=== PATIENT | female | born 1995 | race Caucasian/White ===

== ENCOUNTER 2020-11-10 08:26 | Inpatient (IN) | payer MEDICAID ==
[2020-11-10] VITALS (12 sets, daily range): BP systolic 117–148; BP diastolic 61–95
[~2020-11-10] VITALS: Ht 157.5 cm; Wt 96.8 kg
[2020-11-10] MEDS ORDERED: CETI10CA2 PO (08:41)
[2020-11-10] MEDS ORDERED: FLUT15.820 NARES (08:43)
[2020-11-10] MEDS ORDERED: PRENTAB53 PO (08:43)
[2020-11-10] MEDS ORDERED: INSU100V2 SQ ×2 (08:49)
[2020-11-10] MEDS ORDERED: LACTATED RINGER'S 1000 ML IV STA (10:08)
[2020-11-10] MEDS ORDERED: CARBOPROST TROMETHAMINE 250 MCG/ML AMP IM PRN (10:10)
[2020-11-10] MEDS ORDERED: miSOPROStol 50MCG 1/2 TABLET SL SCH (10:10)
[2020-11-10] MEDS ORDERED: OXYTOCIN INJ 10 UNITS/ML VIAL (J2590) IV PRN (10:10)
[2020-11-10] MEDS ORDERED: OXYTOCIN INJ 10 UNITS/ML VIAL (J2590) IM PRN (10:10)
[2020-11-10] MEDS ORDERED: TRANEXAMIC ACID INJection 1,000 MG in NS 100 ML IV PRN (10:10)
[2020-11-10] MEDS ORDERED: OXYTOCIN DRIP 30 UNITS in IV 1 EA IV PRN ×6 (10:10)
[2020-11-10] MEDS ORDERED: LR 1,000 ML IV SCH (10:10)
[2020-11-10] MEDS ORDERED: LIDOCAINE 1% MDV 20ML VIAL INFIL PRN (10:10)
--- NOTE | 2020-11-10 10:14 | HPEPDOC ---
Obstetrical History & Physical General Date of Admission Nov 10, 2020 at 08:26 History of Present Illness 25-year-old at 39+0 weeks gestation. Presents for an induction of labor. Indication for induction: Insulin-dep GDM She denies vaginal bleeding, loss of fluid or painful, frequent uterine contrac tions. She reports regular movement. She denies headache, visual changes, right upper quadrant pain, shortness of breath or chest pain. course: GDM/insulin dependent PMH: Anxiety, depression SH: none Meds: vitamin, Lispro 10U qam, 7U at noon, 7U at night All: NKDA DIRECTOR OF SALES MARKETING: No STI or dysplasia OB: G1 Sochx: No tobacco, alcohol or drug use FamHx: Psych, DM2 labs: Blood type O+, antibody screen negative, HepBsAg neg, HIV neg, rubella immune, Hep C antibody negative, RPR nonreactive, CT/GC neg, urine culture negative, GDM screen positive. GBS negative Past Medical History Allergies Coded Allergies: cat dander (Verified Allergy, Unknown, 11/10/20) Medications Scheduled Cetirizine HCl (ZyrTEC) 10 Mg Capsule, 10 MG PO DAILY Fluticasone Propionate (Fluticasone Propionate) 15.8 Ml [place].susp, 2 SPRAY NARES DAILY Insulin Lispro (Insulin Lispro) 100 Unit/1 Ml Vial, 10 UNIT SQ QAM Insulin Lispro (Insulin Lispro) 100 Unit/1 Ml Vial, 7 UNIT SQ DAILY Insulin Lispro (Insulin Lispro) 100 Unit/1 Ml Vial, 7 UNIT SQ DAILY Vit,Calc76/Iron/Folic (Prenatabs Rx Tablet) 1 Each Tablet, 1 TAB PO DAILY Physical Examination Physical Examination GENERAL: Alert and oriented times three. ABDOMEN: Gravid and non-tender to touch. FETUS: Is vertex (VTX) by sterile vaginal examination (SVE), fetus is vertex (VTX) by Tomás. HEART RATE: Regular rate and rhythm. LUNGS: Clear to auscultation (CTA). EXTREMITIES: No edema. No clonus. Deep tendon reflexes (DTRs) + 2 SVE: Fingertip dilation, 25% effacement, thick, posterior, -3 station EFM: Category 1 [place]: No contraction pattern detected Vital Signs/I&O Vital Signs Date Time Temp Pulse Resp B/P (MAP) Pulse Ox O2 Delivery O2 Flow Rate FiO2 11/10/20 08:53 97.3 102 18 143/72 (95) Assessment/Plan Assessment 25-year-old G1, P0 at 39+ weeks gestation. Insulin-dependent gestational diabetes. Reassuring maternal and status. Plan Admit and orient. Dough Mixer Operator and consent. Labs and intravenous (IV) per unit protocol. Preeclamptic lab profile added Insulin drip protocol will be administered during active labor Counseled on cervical ripening and Pitocin for induction of labor (IOL). Mode of delivery plan: . C-S as appropriate. ALPA NGUYEN DO Nov 10, 2020 10:14
[2020-11-10 10:54] LABS: HEMATOCRIT 35.1 % (36.0-47.0); HEMOGLOBIN 11.6 g/dl (12.0-15.5); MEAN CORPUSCULAR HEMOGLOBIN 28.3 pg (27.0-33.0); MEAN CORPUSCULAR VOLUME 85.6 fl (80.0-96.0); PLATELET COUNT, AUTOMATED 286 10^3/uL (150-450); WHITE BLOOD COUNT 11.2 10^3/uL (4.0-10.0)
[2020-11-10] MEDS: miSOPROStol 50MCG 1/2 TABLET SL SCH ×3 (11:00→21:31)
[2020-11-10 11:14] LABS: CREATININE,RANDOM URINE 93.6 MG/DL; TOTAL PROTEIN,RANDOM URINE 13.5 MG/DL (0.0-12.0)
[2020-11-10 11:15] LABS: AMPHETAMINES URINE REFLEX NEGATIVE (NEGATIVE); BARBITURATES URINE REFLEX NEGATIVE (NEGATIVE); BENZODIAZEPINES URINE REFLEX NEGATIVE (NEGATIVE); CANNABINOIDS URINE REFLEX NEGATIVE (NEGATIVE); COCAINE METABOLITE URINE REFLE NEGATIVE (NEGATIVE); METHADONE URINE REFLEX NEGATIVE (NEGATIVE); OPIATES URINE REFLEX NEGATIVE (NEGATIVE); PHENCYCLIDINE URINE REFLEX NEGATIVE (NEGATIVE)
[2020-11-10 11:16] LABS: ALT/SGPT 15 U/L (12-78); BILIRUBIN,TOTAL 0.3 MG/DL (0.2-1.0); CREATININE FOR GFR 0.55 MG/DL (0.55-1.30); GLOMERULAR FILTRATION RATE > 60.0 (>60); LDH LACTATE DEHYDROGENASE 164 U/L (84-246); URIC ACID 5.3 MG/DL (2.6-6.0)
[2020-11-11] VITALS (41 sets, daily range): BP systolic 104–203; BP diastolic 57–97
[2020-11-11] MEDS ORDERED: ACETAMINOPHEN 500 MG TAB PO ONE (01:00)
[2020-11-11] MEDS ORDERED: INSULIN IV RATE CHANGE DOCUMENTATION ML/HR XX SCH (09:15)
[2020-11-11] MEDS ORDERED: INSULIN REGULAR IN 0.9 % NACL 100 UNIT in IV 1 EA IV SCH ×2 (09:15)
[2020-11-11] MEDS ORDERED: NS 1,000 ML IV SCH (09:15)
[2020-11-11] MEDS ORDERED: OXYTOCIN DRIP 30 UNITS in IV 1 EA IV SCH (09:15)
--- NOTE | 2020-11-11 09:15 | IPNPDOC ---
Text Note Date of Service The patient was seen on 11/11/20. NOTE Progress Remains comfortable UC mild, irregular FH 125, Cat I SVE 1-2/60/-2 Cooks catheter placed, inflated with 60/40cc NS Start pitocin and insulin GTT at this time. Plans epidural VS,Fishbone, I+O VS, Fishbone, I+O Laboratory Tests 11/10/20 10:27 11/10/20 10:28 Vital Signs Date Time Temp Pulse Resp B/P (MAP) Pulse Ox O2 Delivery O2 Flow Rate FiO2 11/11/20 08:21 94 18 144/79 (100) 11/11/20 07:13 97.9 Claudia Vee CNM Nov 11, 2020 09:15
[2020-11-11] MEDS ORDERED: PROMETHAZINE INJ 25 MG/ML VIAL (J2550) IV ONE (10:20)
[2020-11-11] MEDS ORDERED: BUTORPHANOL 2 MG/ML INJ (J0595) IV ONE (10:20)
--- NOTE | 2020-11-11 17:54 | IPNPDOC ---
Text Note Date of Service The patient was seen on 11/11/20. NOTE Progress Requesting add'l pain management. Cat I tracing, UC 3-5 minutes. Pitocin @ 18mu Vaginal bulb deflated. Uterine through the cervix and removed SVE 80/-3, moderate bloody show. Requesting epidural VS,Fishbone, I+O VS, Fishbone, I+O Vital Signs Date Time Temp Pulse Resp B/P (MAP) Pulse Ox O2 Delivery O2 Flow Rate FiO2 11/11/20 17:13 85 18 141/77 (98) 11/11/20 17:00 98.4 Claudia Vee Nov 11, 2020 17:54
[2020-11-11 22:54] LABS: HEMATOCRIT 33.7 % (36.0-47.0); HEMOGLOBIN 10.8 g/dl (12.0-15.5); MEAN CORPUSCULAR HEMOGLOBIN 27.8 pg (27.0-33.0); MEAN CORPUSCULAR VOLUME 86.6 fl (80.0-96.0); PLATELET COUNT, AUTOMATED 252 10^3/uL (150-450); RED BLOOD COUNT 3.89 10^6/uL (4.00-5.40); WHITE BLOOD COUNT 12.7 10^3/uL (4.0-10.0)
[2020-11-11] MEDS ORDERED: FENTANYL 2MCG/ML ROPIVACAINE 0.2% IN 0.9% NACL 100ML IVBAG As Ordered ONE (23:04)
[2020-11-12] VITALS (49 sets, daily range): BP systolic 93–178; BP diastolic 50–101
[2020-11-12] MEDS: FENTANYL/ROPIVACAINE/NACL BAG 100 ML EPIDURAL SCH ×2 (00:40→10:40)
[2020-11-12] MEDS ORDERED: ePHEDrine SULFATE 25 MG/5 ML(5MG/ML) SYRINGE As Ordered ONE (02:15)
[2020-11-12] MEDS ORDERED: REFRIGERATOR IV KEYS XX PRN (02:20)
[2020-11-12] MEDS ORDERED: diphenhydrAMINE 50MG/ML VIAL (J1200) IV PRN ×2 (02:20→17:10)
[2020-11-12] MEDS ORDERED: EPIDURAL COMMENT XX SCH (02:20)
[2020-11-12] MEDS ORDERED: LACTATED RINGER'S 1000 ML IV PRN (02:20)
[2020-11-12] MEDS ORDERED: NALOXONE INJ 0.4MG/1ML VIAL (J2310 PER 1MG) IV PRN ×3 (02:20→17:10)
[2020-11-12] MEDS ORDERED: ePHEDrine SULFATE 25 MG/5 ML(5MG/ML) SYRINGE IV PRN (02:20)
[2020-11-12] MEDS ORDERED: EPIDURAL/PCA KEYS XX PRN (02:20)
[2020-11-12] MEDS ORDERED: ONDANSETRON 4MG/2ML VIAL IV PRN ×3 (02:20→18:00)
--- NOTE | 2020-11-12 05:22 | IPNPDOC ---
Text Note Date of Service The patient was seen on 11/12/20. NOTE Progress Comfortable with epidural Blood sugars have been stable all night, no insulin required UC irregular, 3-5 minutes Primarily Cat I tracing, episodes of Cat II (variables) Pitocin currently at 4mu SVE /-1, AROM large amount clear fluid. Continue low dose pitocin and observe for progress. VS,Fishbone, I+O VS, Fishbone, I+O Laboratory Tests 11/11/20 22:48 Vital Signs Date Time Temp Pulse Resp B/P (MAP) Pulse Ox O2 Delivery O2 Flow Rate FiO2 11/11/20 19:30 98.1 76 104/58 (73) 11/11/20 18:43 18 I&O- Last 24 Hours up to 6 AM 11/12/20 06:00 Intake Total 1486 ml Output Total 1900 ml Balance -414 ml Claudia Vee CNM Nov 12, 2020 05:22
[2020-11-12] MEDS ORDERED: LACTATED RINGER'S 1000 ML IV STA (14:07)
--- NOTE | 2020-11-12 14:07 | IPNPDOC ---
Obstetrical Progress Note Date of Service Nov 12, 2020 Subjective - Comfortable following epidural. Objective Vital Signs Date Time Temp Pulse Resp B/P (MAP) Pulse Ox O2 Delivery O2 Flow Rate FiO2 11/12/20 11:58 96 140/96 (111) 11/12/20 05:27 98.0 11/11/20 18:43 18 Assessment Variability: Moderate Heart Rate Tracing: Category I Tocometer Contractions: Yes Frequency: regular Sterile Vaginal Examination Dilation: 5 cm Effacement (%): 70% Station: -2 Cervical Position: Middle Postion/Presentation: Cephalic presentation Assessment and Plan Age: 25 Status: Reassuring Anticipate: Section (Exam unchanged since 5am. I have discussed diagnosis of arrest of dilation. Recommend 1LTCS.All questions answered.) SONAL ABDALLA MD. Nov 12, 2020 14:07
[2020-11-12] MEDS ORDERED: AZITHROMYCIN INJ 500 MG, VIAL MATE ADAPTER 1 EACH in NS 250 ML IV ONE (14:10)
[2020-11-12] MEDS ORDERED: BICITRA 30ML SOLN UDC PO ONE (14:10)
[2020-11-12] MEDS ORDERED: ceFAZolin SOD 2 GM in IV 1 EA IV ONE (14:10)
[2020-11-12] MEDS ORDERED: LIDOCAINE 2% W/EPINEPHRINE 20ML VIAL **PRES FREE As Ordered ONE (16:11)
[2020-11-12] MEDS ORDERED: KETOROLAC 60MG 2ML VIAL As Ordered ONE (16:38)
[2020-11-12] MEDS ORDERED: ONDANSETRON 4MG/2ML VIAL As Ordered ONE (16:38)
[2020-11-12] MEDS ORDERED: MORPHINE PRES-FREE INJ 10 MG/10 ML VIAL (J2274) As Ordered ONE (16:39)
[2020-11-12] MEDS ORDERED: OXYTOCIN 30 UNITS IN 0.9% NaCl 500ML IV BAG (J2590) As Ordered ONE ×2 (16:42→18:05)
[2020-11-12] MEDS ORDERED: METOCLOPRAMIDE INJ 10MG/2ML VIAL (J2765 PER 1) IV PRN ×2 (17:10→18:00)
[2020-11-12] MEDS ORDERED: NALBUPHINE HCL 10 MG/ML AMP (J2300) IV PRN (17:10)
[2020-11-12] MEDS ORDERED: fentaNYL 100 MCG/2 ML INJECTION (J3010) IV PRN (18:00)
[2020-11-12] MEDS ORDERED: LR 1,000 ML IV SCH ×2 (18:00→18:05)
[2020-11-12] MEDS ORDERED: PERCOCET 5MG/325MG TAB PO PRN ×3 (18:00→18:05)
--- NOTE | 2020-11-12 18:03 | ROOPDOC ---
[facility] Report Of Operation Report of Operation DATE OF PROCEDURE: 11/12/20 SURGEON: Cira Hemphill M.D. TANGLED YARN SPOOL STRAIGHTENER: Jagdeep López M.D. ( essential for tissue retractions, exposure and delivery of ) PROCEDURE: Primary section PREOPERATIVE DIAGNOSIS: 1.Arrest of dilation POSTOPERATIVE DIAGNOSIS: 1.Arrest of dilation ANESTHESIA: Epidural ESTIMATED BLOOD LOSS: 600 mL URINE OUTPUT: 200 mL INTRAVENOUS FLUIDS: 700 mL of lactated Ringer's solution PREOPERATIVE ANTIBIOTICS:. 2 g of Ancef and 500 azithromycin OPERATIVE FINDINGS: Liveborn male infant, Apgars 9 and 9. Weight 3130 g 6 lbs. 14 oz. SPECIMENS: None DESCRIPTION OF PROCEDURE: After informed consent was obtained and written consent was reviewed. The patient was brought to the operating room. She was then placed in the supine position with a left lateral tilt. Watson catheter was placed and to gravity. Patient was then prepped and draped in the normal sterile fashion. A timeout operating room was performed identifying the patient, procedure be performed as well as drug allergies. Anesthesia was tested and deemed to be adequate. Pfannenstiel skin incision was made and this was carried down to the underlying rectus fascia. The fascia was then scored and this incision was extended bilaterally. The fascia was then dissected off the underlying rectus muscle superiorly and inferiorly. The rectus muscles were then in the midline. The peritoneum is then entered. Vesicouterine peritoneum was then tented and excised and a bladder flap was created. Mobius retractor was then placed. Next, a curvilinear incision was then made in the lower uterine segment. The head was brought to the level of the incision atraumatically and delivered along the shoulders and corpus. The cord was clamped x2. The infant was brought over to the warmer with a good cry. Placenta was drained and delivered grossly intact. The uterus was cleared of all clots and debris and the uterine incision was then closed using 0 Vicryl in a running locking fashion followed by a second layer of 0 Vicryl in a running nonlocking fashion for imbrication. The abdomen suctioned. Surgical sites reinspected and noted be hemostatic. The retractor was then removed. The anterior peritoneum was then reapproximated with 3-0 Vicryl. The rectus muscles were reapproximated 3-0 Vicryl. The fascia was then closed using 0 Vicryl in a running nonlocking fashion. The subcutaneous tissues was then irrigated and suctioned. Subcutaneous tissue was reapproximated using 3-0 Vicryl. Several subdermal stitch is placed using 3-0 Vicryl and the skin was closed with 4-0 Monocryl and subcuticular fashion. This incision was then cleaned and dried and was dressed. The patient was then taken to recovery in stable condition. All counts were correct. . My surgical rn Dr. López played in an essential role during the operation. He assisted with tissue identification retraction, delivery of the , as well as wound closure. CIRA HEMPHILL MD. Nov 12, 2020 18:03
[2020-11-12] MEDS ORDERED: MOM 30ML SUSPENSION UDC PO PRN (18:05)
[2020-11-12] MEDS ORDERED: MEASLES,MUMPS,RUBELLA VACCINE INJ (MMR-II) (90707) SC SCH (18:05)
[2020-11-12] MEDS ORDERED: ONDANSETRON 4 MG ORAL DISINTEGRATING TAB PO PRN (18:05)
[2020-11-12] MEDS ORDERED: SIMETHICONE 80MG CHEW TAB PO PRN (18:05)
[2020-11-12] MEDS ORDERED: OXYTOCIN DRIP 30 UNITS in IV 1 EA IV SCH (18:05)
[2020-11-12] MEDS ORDERED: RHOGAM 300 MCG (1500 IU) INJ (J2790) IM SCH (18:05)
[2020-11-12] MEDS: DOCUSATE SODIUM 100MG CAPSULE PO SCH (21:27)
[2020-11-12] MEDS: KETOROLAC 30 MG/ML 1ML VIAL IV SCH (22:44)
[2020-11-13 02:00] VITALS: BP 114/57
[2020-11-13] MEDS: KETOROLAC 30 MG/ML 1ML VIAL IV SCH ×3 (04:46→11:00)
[2020-11-13 06:00] VITALS: BP 108/61
[2020-11-13 07:59] LABS: HEMATOCRIT 30.2 % (36.0-47.0); HEMOGLOBIN 9.6 g/dl (12.0-15.5); MEAN CORPUSCULAR HEMOGLOBIN 28.1 pg (27.0-33.0); MEAN CORPUSCULAR HGB CONC 31.8 g/dl (32.0-36.5); MEAN CORPUSCULAR VOLUME 88.3 fl (80.0-96.0); PLATELET COUNT, AUTOMATED 248 10^3/uL (150-450); RED BLOOD COUNT 3.42 10^6/uL (4.00-5.40); WHITE BLOOD COUNT 15.2 10^3/uL (4.0-10.0)
[2020-11-13] MEDS: PRENATAL VITAMINS CHEWABLE TABLET PO SCH (09:08)
[2020-11-13] MEDS: DOCUSATE SODIUM 100MG CAPSULE PO SCH ×2 (09:08→20:14)
[2020-11-13 10:00] VITALS: BP 134/79
[2020-11-13] MEDS: CETIRIZINE (ZyrTEC) 10 MG TAB PO SCH (11:17)
[2020-11-13] MEDS: FLUTICASONE PROP 0.05% NASAL SPRAY 16 GM (FLONASE) NARES SCH (11:18)
[2020-11-13] MEDS: IBUPROFEN 800 MG TAB PO SCH ×2 (11:18→18:28)
--- NOTE | 2020-11-13 13:40 | IPNPDOC ---
Progress Note Date of Service: Nov 13, 2020 Day#: 1 Progress Note SUBJECT: Doing well without complaints. Ambulating, voiding and pain is well- controlled. Reports minimal lochia. OBJECTIVE: VITAL SIGNS: Within normal limits, afebrile. Alert and oriented times three. Abdomen: Fundus firm at U-2. Soft, NTTP. Incision: dressed Ext: neg calf tenderness. ASSESSMENT: /postoperative day #1 status post delivery. Recovering in stable condition. PLAN: 1. Continue routine /postoperative care 2. Discharge plans for tomorrow VS, I&O, 24H, Fishbone Vital Signs/I&O Vital Signs Date Time Temp Pulse Resp B/P (MAP) Pulse Ox O2 Delivery O2 Flow Rate FiO2 11/13/20 10:00 97.3 115 16 134/79 (97) 100 Room Air I&O- Last 24 Hours up to 6 AM 11/13/20 05:59 Intake Total 2400 ml Output Total 3400 ml Balance -1000 ml Laboratory Data 24H LABS Laboratory Tests 2 11/12/20 14:35: Bedside Glucose (Misc Panel) 82 11/12/20 17:37: Serology Scanned Report Hepatitis B Testing 11/13/20 07:29: Nucleated Red Blood Cells % (auto) 0.0 CBC/BMP Laboratory Tests 11/13/20 07:29 SONAL ABDALLA MD. Nov 13, 2020 13:40
[2020-11-13 14:00] VITALS: BP 129/70
[2020-11-13 17:56] VITALS: BP 101/63
[2020-11-13 22:00] VITALS: BP 114/65
[2020-11-14 02:00] VITALS: BP 129/70
[2020-11-14] MEDS: IBUPROFEN 800 MG TAB PO SCH ×3 (02:14→18:30)
[2020-11-14] MEDS ORDERED: PERCOCET PO (04:53)
[2020-11-14] MEDS ORDERED: IBUP80TA PO (04:53)
[2020-11-14 06:00] VITALS: BP 125/78
[2020-11-14 08:30] VITALS: BP 125/78
[2020-11-14] MEDS: PRENATAL VITAMINS CHEWABLE TABLET PO SCH (09:03)
[2020-11-14] MEDS: DOCUSATE SODIUM 100MG CAPSULE PO SCH ×2 (09:03→21:00)
[2020-11-14] MEDS: FLUTICASONE PROP 0.05% NASAL SPRAY 16 GM (FLONASE) NARES SCH (09:04)
[2020-11-14 10:00] VITALS: BP 127/65
[2020-11-14] MEDS: CETIRIZINE (ZyrTEC) 10 MG TAB PO SCH (11:13)
--- NOTE | 2020-11-14 11:39 | IPNPDOC ---
Progress Note Date of Service: Nov 14, 2020 Day#: 2 Progress Note SUBJECT: Aniyah is a 25-year-old female who had a primary section due to failed induction 2 days ago. She desires to be discharged if gets discharge. She reports she is ambulating without any symptoms, eating a regular diet, and states her bleeding is minimal. She reports pain has been managed well with medication. is staying for elevated bilirubin level and being placed under double blue lights. OBJECTIVE: VITAL SIGNS: Within normal limits, afebrile. Alert and oriented times three. Breath sounds clear to auscultation. Abdomen: Fundus firm. Dressing intact and clean. No erythema around dressing. Minimal lochia. ASSESSMENT: Day 2 postoperative, [id number] controlled PLAN: 1. Continue supportive nursing care 2. Anticipate discharge to home tomorrow. 3. Saline lock to be removed. VS, I&O, 24H, Fishbone Vital Signs/I&O Vital Signs Date Time Temp Pulse Resp B/P (MAP) Pulse Ox O2 Delivery O2 Flow Rate FiO2 11/14/20 10:00 98.0 89 14 127/65 (85) 98 Room Air ROBERTH MCCALLUM CNM Nov 14, 2020 11:39
[2020-11-14 13:57] VITALS: BP 116/78
[2020-11-14 18:00] VITALS: BP 127/66
[2020-11-15] MEDS: IBUPROFEN 800 MG TAB PO SCH ×2 (03:15→11:37)
[2020-11-15 06:00] VITALS: BP 135/78
--- NOTE | 2020-11-15 07:36 | DS.PDOC ---
Discharge Summary General Date of Admission Nov 10, 2020 at 08:26 Date of Discharge 11/15/20 Attending Physician: SONAL ABDALLA MD. Discharge Summary PROCEDURES PERFORMED DURING STAY: primary section ADMITTING DIAGNOSES: 1. IUP at 39+ weeks gestation. 2. [id number] dependant 3. induction of labor DISCHARGE DIAGNOSES: 1. Day 3 postoperative. COMPLICATIONS/CHIEF COMPLAINT: Induction. HISTORY OF PRESENT ILLNESS: Aniyah is a 25-year-old female who is now a who was was an induction for A2GDM controlled with insulin. She had a failed induction that resulted in a primary section. She is breast and formula feeding her . She states her pain has been managed well. She reports eating a regular diet without any issues and ambulating without any symptoms. She reports her bleeding is minimal. DISCHARGE MEDICATIONS: Please see below. ALLERGIES: Please see below. PHYSICAL EXAMINATION ON DISCHARGE: VITAL SIGNS: Please see below. GENERAL: Does not appear to be in any distress. Sitting up in bed eating breakfast. RESPIRATORY EXAMINATION: regular rate without use of accessory muscles. ABDOMINAL EXAMINATION: dressing is intact without erythema surrounding dressing. EXTREMITIES: generalized edema bilateral legs and feet. SKIN: warm and dry without any lesions or rashes. NEUROLOGICAL EXAMINATION: alert and oriented. PSYCHIATRIC EXAMINATION: patient is pleasant LABORATORY DATA: Please see below. ACTIVITY: As tolerated. Pelvic rest. DIET: regular DISCHARGE INSTRUCTIONS: 1. Patient to be seen in 1-2 weeks and again in 6-8 weeks. 2. Discharge to home. 3. Education done on incisional care, removal of dressing, signs of infection, DVT, pulmonary embolism, mastitis, endometritis, depression. DISCHARGE CONDITION: Stable. Vital Signs/I&Os Vital Signs Date Time Temp Pulse Resp B/P (MAP) Pulse Ox O2 Delivery O2 Flow Rate FiO2 11/15/20 06:00 97.2 92 20 135/78 (97) 98 Room Air I&O- Last 24 Hours up to 6 AM 11/15/20 05:59 Intake Total 200 ml Balance 200 ml Laboratory Data CBC/BMP Item Value Date Time White Blood Count 15.2 10^3/uL H 11/13/20 0729 Red Blood Count 3.42 10^6/uL L 11/13/20 0729 Hemoglobin 9.6 g/dl L 11/13/20 0729 Hematocrit 30.2 % L 6/6/21 0729 Mean Corpuscular Volume 88.3 fl 11/13/20728 Mean Corpuscular Hemoglobin 28.1 pg 11/13/20728 Mean Corpuscular Hemoglobin Concent 31.8 g/dl L 11/13/20728 Red Cell Distribution Width 14.5 % 11/13/20728 Platelet Count 248 10^3/uL 11/13/20 07 Discharge Medications Scheduled Cetirizine HCl (ZyrTEC) 10 Mg Capsule, 10 MG PO DAILY, (Reported) Fluticasone Propionate (Fluticasone Propionate) 15.8 Ml [place].susp, 2 SPRAY NARES DAILY, (Reported) Ibuprofen (Ibuprofen) 800 Mg Tablet, 800 MG PO Q8H Vit,Calc76/Iron/Folic (Prenatabs Rx Tablet) 1 Each Tablet, 1 TAB PO DAILY, (Reported) Scheduled PRN Oxycodone/Acetaminophen (Oxycodone-Acetaminophen 5-325) 1 Each Tablet, 2 TAB PO Q6H PRN for SEVERE PAIN (PS 8-10) Allergies Coded Allergies: cat dander (Verified Allergy, Unknown, 11/10/20) ROBERTH MCCALLUM CNM Nov 15, 2020 07:36
[2020-11-15] MEDS: FLUTICASONE PROP 0.05% NASAL SPRAY 16 GM (FLONASE) NARES SCH (09:00)
[2020-11-15] MEDS: DOCUSATE SODIUM 100MG CAPSULE PO SCH (11:37)
[2020-11-15] MEDS: CETIRIZINE (ZyrTEC) 10 MG TAB PO SCH (11:37)
[2020-11-15] MEDS: PRENATAL VITAMINS CHEWABLE TABLET PO SCH (11:37)
== END 2020-11-15 11:40 | disposition home or self-care (01) | DRG 540 ==
LOC: M LDI 08:26 → M OBS 11-12 18:37
PROVIDERS: ADMIT Obstetrics & Gynecology; ATTEND Obstetrics & Gynecology
PROC: 3E033VJ Introduction of Other Hormone into Peripheral Vein, Percutaneous Approach (ICD-10-PCS; 2020-11-10)
PROC: 10907ZC Drainage of Amniotic Fluid, Therapeutic from Products of Conception, Via Natural or Artificial Opening (ICD-10-PCS; 2020-11-12)
PROC: 10D00Z1 Extraction of Products of Conception, Low, Open Approach (ICD-10-PCS; principal; 2020-11-12 17:17)
DX: O24.424 Gestational diabetes mellitus in childbirth, insulin controlled (principal); Z3A.39 39 weeks gestation of pregnancy; Z37.0 Single live birth; O76 Abnormality in fetal heart rate and rhythm complicating labor and delivery; O62.0 Primary inadequate contractions